=== PATIENT | female | born 1950 | race Caucasian/White ===

== ENCOUNTER → 2017-05-20 | Outpatient (CLI) | payer OTHER | LOC: FIMAGING 12:55 | PROVIDERS: ATTEND Physician Assistant | DX: Z13.820 Encounter for screening for osteoporosis (principal); M81.0 Age-related osteoporosis without current pathological fracture | CPT/HCPCS: G0202 ==

== ENCOUNTER 2017-07-24 11:21 | Observation (INO) | payer OTHER ==
--- NOTE | 2017-07-24 11:43 | CPEKG ---
Heart Rate: 84 RR Interval: 714 P-R Interval: 192 QRSD Interval: 92 QT Interval: 392 QTC Interval: 464 P Pendleton: -78 QRS Pendleton: -67 T Wave Pendleton: 68 EKG Severity - ABNORMAL ECG - EKG Impression: SINUS OR ECTOPIC ATRIAL RHYTHM EKG Impression: VENTRICULAR PREMATURE COMPLEX EKG Impression: LEFT ANTERIOR FASCICULAR BLOCK EKG Impression: CONSIDER LEFT VENTRICULAR HYPERTROPHY EKG Impression: Notched P wave Electronically Signed By: Yung Laguna 24-Jul-2017 11:56:16
[2017-07-24] MEDS ORDERED: NS 500 ML IV ONE (11:49)
--- NOTE | 2017-07-24 11:53 | EDPHY ---
H & P Stated Complaint: dizziness, chest tightness, sob, cold symptoms Time Seen by Provider: 07/24/17 11:37 HPI/ROS: CHIEF COMPLAINT: Lightheaded HISTORY OF PRESENT ILLNESS: Patient is a 67-year-old female who comes to the emergency department complaining that she feels lightheaded and presyncopal. She states that she has a history of bicuspid aortic valve and right atrial aneurysm and follows with Dr. Hunt. She has on metoprolol. She states that since she began taking the metoprolol she has had occasional lightheaded symptoms and mild chest tightness for the last 3-4 months. When she has her presyncopal symptoms she checks her pulse and it is usually slow in the 50s or 60s. Dr. Hunt felt that it was likely from the metoprolol but otherwise she was doing well. Today however symptoms seems worse than usual. She does not have any chest pain in her chest tightness is not any different from normal. She states that she was fainted when she stood up. She checked her pulse and it was 60 and her blood pressure was 140 systolic. 5 minutes later she checked her blood pressure again however and it was 90 systolic and her pulse was 80. She denies recent fevers coughs or illness. She denies shortness of breath. No nausea vomiting. No diaphoresis. No leg pain or swelling. She did have a stress test a couple months ago that she reports was normal. REVIEW OF SYSTEMS: Constitutional: denies: chills, fever, recent illness, recent injury EENTM: denies: blurred vision, double vision, nose congestion Respiratory: denies: cough, shortness of breath Cardiac: See HPI denies: irregular heart rate, palpitations Gastrointestinal/Abdominal: denies: abdominal pain, diarrhea, nausea, vomiting, blood streaked stools Genitourinary: denies: dysuria, frequency, hematuria, pain Musculoskeletal: denies: joint pain, muscle pain Skin: denies: lesions, rash, jaundice, bruising Neurological: denies: headache, numbness, paresthesia, tingling, dizziness, weakness Hematologic/Lymphatic: denies: blood clots, easy bleeding, easy bruising Immunologic/allergic: denies: HIV/AIDS, transplant EXAM: GENERAL: Well-appearing, well-nourished and in no acute distress. HEAD: Atraumatic, normocephalic. EYES: Pupils equal round and reactive to light, extraocular movements intact, sclera anicteric, conjunctiva are normal. ENT: TMs normal, nares patent, oropharynx clear without exudates. Moist mucous membranes. NECK: Normal range of motion, supple without lymphadenopathy or JVD. LUNGS: Breath sounds clear to auscultation bilaterally and equal. No wheezes rales or rhonchi. HEART: Regular rate and rhythm without murmurs, rubs or gallops. ABDOMEN: Soft, nontender, normoactive bowel sounds. No guarding, no rebound. No masses appreciated. BACK: No CVA tenderness, no spinal tenderness, step-offs or deformities EXTREMITIES: Normal range of motion, no pitting or edema. No clubbing or cyanosis. NEUROLOGICAL: Cranial nerves II through XII grossly intact. Normal speech, normal gait. 5/5 strength, normal movement in all extremities, normal sensation PSYCH: Normal mood, normal affect. SKIN: Warm, dry, normal turgor, no visible rashes or lesions. 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, H-PYLORI 2010, PNUEMONIA 04/26, HTN, SINUS SURG - Family History Significant Family History: No pertinent family hx - Social History Smoking Status: Never smoked Alcohol Use: Sober Drug Use: None Constitutional: Initial Vital Signs Temperature (C) 36.8 C 07/24/17 11:27 Heart Rate 86 07/24/17 11:27 Respiratory Rate 18 07/24/17 11:27 Blood Pressure 158/64 H 07/24/17 11:27 O2 Sat (%) 97 07/24/17 11:27 O2 Delivery Mode Room Air Allergies/Adverse Reactions: rosuvastatin [From Crestor] Allergy (Intermediate, Verified 07/24/17 13:59) Rash triethanolamine [From Cerumenex] Allergy (Intermediate, Verified 07/24/17 13:59) Other-Enter Comments Home Medications: Medication Instructions Recorded Calcium Carbonate [Oyster Shell 500 mg PO DAILY 10/12/15 Calcium 500 mg (*)] Omeprazole [Prilosec 20 mg] 20 mg PO DAILY 10/12/15 Cholecalciferol Vit D3 [Vitamin D3 1,000 units PO DAILY 07/24/17 (*)] Cyanocobalamin [Vitamin B12 (*)] 1,000 mcg PO Q2D@09 07/24/17 Herbals/Supplements -Info Only 1 ea PO DAILY 07/24/17 Multivitamins [Multivitamin (*)] 1 each PO DAILY 07/24/17 Harold-3 Fatty Acids [Fish Oil 1000 1,000 mg PO DAILY 07/24/17 mg (*)] Metoprolol Succinate 50 mg PO DAILY@18 #0 07/25/17 Medical Decision Making - Diagnostics EKG Interpretation: An EKG obtained and was read and documented in trace view. Please see trace view for full reading and report. Sinus rhythm with notch P wave, PVC, similar to previous Imaging: Discussed imaging studies w/ scallop binder Radiologist ED Course/Re-evaluation: Patient's orthostatic vital signs are normal. 12:50 p.m. the patient's lab work and imaging are normal thus far. I spoke with hospital service who will admit to Dr. Helm. Differential Diagnosis: Partial list of the Differential diagnosis considered include but were not limited to; acute coronary disease, arrhythmia, dehydration and although unlikely based on the history and physical exam, I also considered infection, aneurysm. - Data Points Laboratory Results: Laboratory Results 07/24/17 11:42 07/24/17 11:42 Medications Given: Discontinued Medications Calcium Carbonate (Oyster Shell Calcium) 500 mg PO DAILY [facility] Stop: 01/21/18 08:59 Last Admin: 07/25/17 13:38 Dose: 500 mg Cholecalciferol (Vitamin D) 1,000 units PO DAILY [facility] Stop: 01/21/18 08:59 Last Admin: 07/25/17 13:38 Dose: 1,000 units Cosyntropin (Cortrosyn Syringe) 0.25 mg IVP DAILY@0600 ONE Stop: 07/25/17 06:01 Last Admin: 07/25/17 05:28 Dose: 0.25 mg Sodium Chloride (Ns) 500 mls @ 0 mls/hr IV EDNOW ONE; Wide Open PRN Reason: Protocol Stop: 07/24/17 11:50 Last Admin: 07/24/17 12:08 Dose: 500 mls Metoprolol Succinate (Toprol Xl) 75 mg PO DAILY@18 [facility] Stop: 01/20/18 17:59 Last Admin: 07/24/17 17:03 Dose: 75 mg Multivitamins (Tab-A-Faviola) 1 each PO DAILY [facility] Stop: 01/21/18 08:59 Last Admin: 07/25/17 13:38 Dose: 1 each [id number] Ethyl Esters (Fish Oil) 1,000 mg PO DAILY [facility] Stop: 01/21/18 08:59 Last Admin: 07/25/17 13:38 Dose: 1,000 mg Pantoprazole Sodium (Protonix) 40 mg PO DAILY [facility] Stop: 01/21/18 08:59 Last Admin: 07/25/17 08:36 Dose: 40 mg Departure - Departure Disposition: [facility] Acute Clinical Impression: Chest pain, Pre-syncope Condition: Fair
[2017-07-24 11:54] LABS: % IMMATURE GRANULYOCYTES 0.3 % (0.0-1.1); ABSOLUTE IMMATURE GRANULOCYTES 0.02 10^3/uL (0.00-0.10); ADD DIFF? NO; ADD MORPH? NO; ADD SCAN? NO; ATYPICAL LYMPHOCYTE FLAG 0 (0-99); FRAGMENT RBC FLAG 0 (0-99); HEMATOCRIT 40.5 % (38.0-47.0); HEMOGLOBIN 14.4 g/dL (12.6-16.3); LEFT SHIFT FLG 0 (0-99); LIPEMIA HEMOLYSIS FLAG 90 (0-99); MEAN CELL HEMOGLOBIN 30.4 pg (27.9-34.1); MEAN CELL HEMOGLOBIN CONCENTR. 35.6 g/dL (32.4-36.7); MEAN CELL VOLUME 85.6 fL (81.5-99.8); MEAN PLATELET VOLUME 9.3 fL (8.7-11.7); PLATELET CLUMPS FLAG 0 (0-99); PLATELET COUNT 266 10^3/uL (150-400); RED BLOOD CELL COUNT 4.73 10^6/uL (4.18-5.33); RED CELL DISTRIBUTION WIDTH 11.9 % (11.5-15.2)
[2017-07-24 12:06] LABS: ANION GAP 12 mEq/L (8-16); CALCIUM 9.3 mg/dL (8.5-10.4); CARBON DIOXIDE 24 mEq/l (22-31); CHLORIDE 104 mEq/L (97-110); CREATININE 0.7 mg/dL (0.6-1.0); GLOMERULAR FILTRATION RATE > 60; GLUCOSE 126 mg/dL (70-100); SODIUM 140 mEq/L (134-144)
[2017-07-24 12:15] LABS: TROPONIN I < 0.012 ng/mL (0.000-0.034)
[2017-07-24 12:42] LABS: PROTIME(PATIENT) 13.1 SEC (12.0-15.0)
[2017-07-24 12:43] LABS: APTT 26.7 SEC (23.0-38.0)
--- NOTE | 2017-07-24 14:33 | PDGENHP ---
History and Physical History and Physical: CC: Lightheadedness and chest discomfort HISTORY: This patient who has a history of bicuspid aortic valve with and what sounds like possible right atrial aneurysm, was started on metoprolol [address] Mata. Is not entirely clear what the medicine was started for talking to the patient, though it sounds like it may been a combination of high blood pressure and heart valve issues. The patient has never had any symptoms from her bicuspid aortic valve that she is aware of. However since starting on the metoprolol the patient has noted frequent episodes of postural lightheadedness. 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 They are not exertional per se. They have not been associated with any dyspnea, acute neurologic symptoms, or palpitations. She does check her pulse sometimes during these episodes and finds it to be approximately 60 beats per minute though she is not really sure whether her pulses much faster at other times. It does not sound like she has checked her blood pressure during these episodes at home. The episodes however typically are quite brief lasting always less than 1 minute. Afterward she does not have residual symptoms. There has never been syncope or fall. She does however feel she needs to put a handout against a wall or railing at times if she is standing. It sounds like her last echocardiogram was about 5-6 months ago In addition over the past week the patient's has started to note intermittently some vaguely described discomfort in the substernal area. These episodes when they occur last what sounds like around 30-60 seconds and resolved spontaneously. 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 They are not all postural, they do not involve dyspnea, they are never exertional. She does do regular physical activity and has felt fine during her physical activity recently. In addition she did have a treadmill stress test without perfusion imaging in May and she thinks that test was normal. She has no history of coronary or vascular disease, no history of tobacco exposure diabetes or hypercholesterolemia. She has had some hypertension. There is no family history of coronary disease ROS: A comprehensive 10 system review revealed no other significant findings PAST MEDICAL HISTORY: Bicuspid aortic valve ? 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 I have reviewed the list and ordered appropriate medicines. PHYSICAL EXAMINATION: Vital Signs: Some systolic hypertension here so far otherwise normal vital signs Orthostatic vital Signs: She did have a significant greater than 20 point decrease in blood pressure supine to standing, though interestingly her her pulse was 67 supine, 81 seated, 67 standing Certified Physical Therapist Assistant: All sinus at this point with good heart rates Examination: General: alert, oriented, good mentation, relaxed Skin: warm, dry, good color, no rash HEENT: normal Neck: no mass or jvd Resps: relaxed Lungs: clear breath sounds Heart: regular, no murmur Abdomen: soft, nondistended, nontender, +BS, no mass Upper Extremities: normal Lower Extremities: no edema, warm No Bleeding or bruising Neurologic: normal speech/language, normal box nailer, no focal weakness IV site: looks normal LABORATORY DATA: Troponin, basic met panel, CBC all normal RADIOLOGY STUDIES: Chest x-ray on my review of image shows hyperexpansion suggestive of possible obstructive disease otherwise unremarkable 12 LEAD EKG: My assessment of the tracing: Sinus rhythm with notched P waves consistent with her history of right atrial aneurysm; left anterior fascicular block is present but no other conduction abnormalities, no signs of ischemia or injury; a U wave is present ASSESSMENT: # frequent episodes of orthostatic lightheadedness and the patient started on metoprolol 75 mg daily shortly before onset of these episodes. -no definite evidence of bradycardia at this time -orthostatic blood pressure changes noted on exam in the ER, though inconclusive measure of pulse changes -at present nothing specific to suggest a neurologic disease that would cause orthostasis but this is always a consideration this age group; She does not appear dehydrated # recent onset of anginal sounding chest discomfort episodes at rest, her worst episode occurred this morning -1st troponin and EKG nonischemic -will need to review her stress test results from May if that is available # history of hypertension, currently hypertensive despite medication # history of bicuspid aortic valve and right atrial aneurysm -it sounds like Dr. Mata has not been concerned about any need to be considering surgery, and I do not hear a murmur at this time # she reports history of an echocardiogram 5 months ago, reportedly normal stress test 2 months ago It is certainly possible that the metoprolol as the cause of her orthostatic lightheadedness. All look for other possible causes here but if nothing really shows up it may be worth a trial off the metoprolol to see if she gets better. In terms of her chest discomfort there are certain features to this that make it sounds like it may be digestive were stress related. However given her uncontrolled hypertension and her age with certainly 1 be cautious with this anginal something symptom and rule out for ME and likely with provocative stress testing tomorrow. She has stress test in May would consider doing a test with perfusion imaging. I have reviewed the patient's case in detail with Dr. vieyra I have requested the patient's past medical records as part of this assessment, including clinic records to include her echocardiogram and stress test reports.
[2017-07-24] MEDS ORDERED: ZOLPIDEM TARTRATE 5 MG TAB PO PRN (17:38)
[2017-07-24] MEDS ORDERED: ONDANSETRON 4 MG/2 ML VIAL IVP PRN (17:38)
[2017-07-24] MEDS ORDERED: ACETAMINOPHEN 325 MG TAB PO PRN (17:38)
[2017-07-24] MEDS ORDERED: METOPROLOL SUCCINATE XR 25 MG TAB PO SCH (18:00)
[2017-07-25] MEDS ORDERED: COSYNTROPIN 0.25 MG/2 ML SYRINGE IVP ONE (06:00)
[2017-07-25 07:02] VITALS: TEMP 98
[2017-07-25] MEDS ORDERED: CHOLECALCIFEROL VIT D3 1,000 UNITS TAB PO SCH (09:00)
[2017-07-25] MEDS ORDERED: PANTOPRAZOLE SODIUM 40 MG TAB PO SCH (09:00)
[2017-07-25] MEDS ORDERED: OMEGA-3 FATTY ACIDS 1,000 MG CAP PO SCH (09:00)
[2017-07-25] MEDS ORDERED: NON-FORMULARY NEW DRUG (Omeprazole [Prilosec 20 Mg] 20 MG) PO SCH (09:00)
[2017-07-25] MEDS ORDERED: MULTIVITAMINS 1 EACH TAB PO SCH (09:00)
[2017-07-25] MEDS ORDERED: CALCIUM CARBONATE 500 MG TAB PO SCH (09:00)
[2017-07-25 11:30] VITALS: BP 159/80; PULSE 72; RESP 18; O2SAT 93
--- NOTE | 2017-07-25 11:52 | CPIP ---
[f rep st] INVASIVE CARDIAC PROCEDURE DATE OF PROCEDURE: 07/25/2017 PROCEDURE PERFORMED: Lexiscan stress test report. INDICATIONS: Chest pain. COMPLICATIONS: None. DESCRIPTION OF PROCEDURE: Informed consent was obtained. The patient was established to the monitor . Continuous telemetry and continuous oxygen saturation monitoring were performed, as well as blood pressures every 1 minute throughout the test. She received a standard Lexiscan dose of 0.4 mg followed by saline flush, followed by radiopharmaceut ical. The patient tolerated the procedure well, with some chest fullness and abdominal fullness that subsid ed with caffeine. FINDINGS: Resting EKG shows sinus rhythm with delayed R-wave progression and left anterior fascicula r block. Stress EKG: No change in ST segments. Occasional PVCs. HEMODYNAMICS: Resting heart rate 57 beats per minute. Resting blood pressure 146/78. Peak hyperemi a blood pressure 140/82 with a heart rate of 81. Oxygen saturation remained above 90% throughout vicky ting. CONCLUSIONS: Uneventful Lexiscan stress test. Await nuclear images. /[id number]/MODL
--- NOTE | 2017-07-25 12:03 | ASMTCMCOM ---
CM Note CM Note Notes: 07/25/2017 Case Management Note Reviewed chart. There are no PT or OT evals ordered. No case management d/c needs identified d/t pt age, employment status and actifvity levesl prior to admission. Case management d/c poc: Home independent when medically stable with follow up as directed. Case management available if needs change. Date Signed: 07/25/2017 12:02 PM Electronically Signed By:Elizabeth Cruz RN
--- NOTE | 2017-07-25 14:27 | PDDCSUM ---
Discharge Summary Discharge Summary: DISCHARGE DIAGNOSES: -symptomatic orthostatic hypotension -uncontrolled benign essential hypertension -chest pain, noncardiac -normal myocardial perfusion imaging with Lexiscan stress -known coronary calcifications per CT scan -bicuspid aortic valve without significant week or stenosis by most recent echo PROCEDURES: Lexiscan with myocardial perfusion imaging HOSPITAL COURSE SUMMARY: This patient presented to the hospital complaining of 3 months of ongoing symptomatic lightheaded spells. Here she had persistent orthostatic hypotension in the setting of uncontrolled hypertension. She is taking long- acting metoprolol 75 mg daily and started this medicine shortly before the onset of her symptoms. On cardiac monitoring she had no significant arrhythmia. There is no evidence of heart failure or ischemia and she had no evidence of coronary abnormalities on myocardial perfusion imaging. Her ejection fraction is normal. She had no neurologic symptoms otherwise and a normal neurologic exam. She did not have evidence of dehydration or infection or significant anemia. She has a normal Cortrosyn stim test and a normal TSH. The cause of her orthostatic hypotension is uncertain. The metoprolol may be aggravating her symptoms but I do not think it is causing her orthostatic symptoms from a root cause. It may be that this is the beginning of will be come some type of progressive neurologic illness. Over time this will need to be followed closely and she may potentially need other evaluation for neurologic or other abnormalities that could cause this. In the meantime managing her orthostatic hypotension will be problematic the in that she has hypertension and needs this treated, particularly as she does have known coronary calcifications on CT scan. For the moment I think it will be important to try and test whether the metoprolol as actually aggravating her symptoms and so I have asked her to decrease her metoprolol to 50 mg daily and if no improvement in 2 weeks consider decreasing it to 25 mg daily. If she feels no better on the lower doses of metoprolol she can go back to the 75 mg. If she does feel better off the current dose of metoprolol she will need to watch her blood pressures at home and she may need other blood pressure medicines trialed to see if she tolerates them any better. In addition the patient did have some chest discomfort episodes as she arrived here. This did not particularly sound typical of angina but we did do a rule out protocol and myocardial perfusion imaging as she does have known coronary calcifications. There was no evidence of ischemia or injury here and she rule out for myocardial infarction. Myocardial perfusion imaging was normal. She appears at very low risk for any future cardiac events at this time. PENDING TEST RESULTS: None MEDICATION CHANGES: Decreased metoprolol dose 50 mg daily, follow for resolution of orthostatic symptoms, consider decreasing to 25 mg daily if the symptoms persist FOLLOW-UP PLAN: She will be following up with her primary care physician and Dr. Mata for all of the above
--- NOTE | 2017-07-25 16:36 | ASDISCHSUM ---
Discharge Information Plan Status:Home with No Needs Medically Cleared to Leave:07/24/2017 Discharge Date:07/25/2017 03:38 PM CM D/C Disposition:Home, Routine, Self-Care ADT D/C Disposition:Home, Routine, Self-Care Projected Discharge Date:07/25/2017 03:38 PM Transportation at D/C:Family Discharge Delay Reason: Follow-Up Date:07/25/2017 03:38 PM Discharge Slot: Final Diagnosis: Placement Information Patient Contact Information Contact Name:FRAN Relationship:Mother Address:[address] [place] Work Phone: City:[place] Alternate Phone: [facility]/Zip Code:[place] [address] Email: Financial Information Financial Class:HMO and PPO Plans Primary Plan Desc:[employer] PPO POS Primary Plan Number:[id number] Secondary Plan Desc: Secondary Plan Number: Assessment Information LACE LACE Acuity / Level of Care Answers: Was the patient admitted to hospital via the emergency department? Yes: Emergency dept visits in Answers: 1 last 6 months Score: 4 Date Signed: 07/24/2017 01:01 PM Electronically Signed By:Nimco Navarrete RN [facility] CM Progress Note CM Note CM Note Notes: 07/25/2017 Case Management Note Reviewed chart. There are no PT or OT evals ordered. No case management d/c needs identified d/t pt age, employment status and actifvity levesl prior to admission. Case management d/c poc: Home independent when medically stable with follow up as directed. Case management available if needs change. Date Signed: 07/25/2017 12:02 PM Electronically Signed By:Elizabeth Cruz RN Intervention Information
[2017-07-26] MEDS ORDERED: CYANO/VITAMIN B12 1000 MCG TAB PO SCH (09:00)
== END 2017-07-25 15:38 | disposition home or self-care (01) ==
LOC: F2W 13:46
PROVIDERS: ADMIT Family Medicine; ATTEND Internal Medicine
DX: I95.1 Orthostatic hypotension (principal); R07.89 Other chest pain; I10 Essential (primary) hypertension; I25.10 Atherosclerotic heart disease of native coronary artery without angina pectoris; I71.2 Thoracic aortic aneurysm, without rupture; Q23.1 Congenital insufficiency of aortic valve
CPT/HCPCS: 71020; 78451; 93005; 93017; A9500; G0378; J0834

== ENCOUNTER → 2017-12-30 | Outpatient (CLI) | payer OTHER | LOC: FIMAGING 07:11 | PROVIDERS: ATTEND Physician Assistant | DX: I25.10 Atherosclerotic heart disease of native coronary artery without angina pectoris (principal); I13.10 Hypertensive heart and chronic kidney disease without heart failure, with stage 1 through stage 4 chronic kidney disease, or unspecified chronic kidney disease ==

== ENCOUNTER → 2018-05-26 | Outpatient (CLI) | payer OTHER | LOC: FIMAGING 07:47 | PROVIDERS: ATTEND Physician Assistant | DX: Z12.31 Encounter for screening mammogram for malignant neoplasm of breast (principal) ==

== ENCOUNTER 2018-09-30 09:09 | Day surgery (SDC) | payer OTHER ==
[2018-09-30] MEDS ORDERED: LIDOCAINE 1% 300 MG/30 ML SDV SC ONE (09:14)
--- NOTE | 2018-09-30 09:58 | PDHPUP ---
History & Physical Update H&P update statement: This history and physical update is based on an assessment of the patient which was completed after admission or registration (within 24 hours), but prior to the surgery/procedure.Plan for Medtronic LINQ in the setting of idiopathic CVA H&P update: H&P reviewed & patient examined, no change in patient's condition since H&P completed
[2018-09-30 11:21] VITALS: BP 188/86
[2018-09-30] MEDS ORDERED: amLODIPine BESYLATE 5 MG TAB PO ONE (11:30)
--- NOTE | 2018-09-30 13:17 | CPIP ---
DATE OF PROCEDURE: 09/30/2018 PROCEDURE PERFORMED: Medtronic LINQ implantable loop recorder. INDICATION FOR PROCEDURE: History of idiopathic CVA. PROCEDURE: After informed consent was obtained, the patient was brought to the CVC. Sterile dressin g was placed. The 4th intercostal space 2 cm from midline was identified. Patient underwent local a nesthesia with lidocaine. Once appropriate level of anesthesia was in place, incision with scalpel t ool provided with Medtronic kit was used to make incision in the skin. This incision was modified wi th a scalpel blade. Medtronic implantable loop recorder tool was used to create under the skin. Device was injected into the skin without difficulty. Hemostasis was achieved. Steri-Strips x3 were placed. Gauze and Tegaderm were placed. The patient tolerated the procedure well. There were no postoperative complications. Patient at the time of this dictation is having her device interrogated. She is scheduled for followup with Yecenia morales, nurse practitioner, in our office next week. PLAN: 1. Patient will be discharged home after device has been programmed and interrogated. 2. Followup next week. /[id number]/MODL
== END 2018-09-30 12:27 | disposition home or self-care (01) ==
LOC: FCATH 09:09
PROVIDERS: ATTEND Internal Medicine Cardiovascular Disease
PROC: 0JH632Z Insertion of Monitoring Device into Chest Subcutaneous Tissue and Fascia, Percutaneous Approach (ICD-10-PCS; principal; 2018-09-30)
DX: I63.9 Cerebral infarction, unspecified (principal); I10 Essential (primary) hypertension; I71.9 Aortic aneurysm of unspecified site, without rupture; E78.5 Hyperlipidemia, unspecified
CPT/HCPCS: C1764

== ENCOUNTER → 2019-01-06 | Outpatient (CLI) | payer OTHER | LOC: FIMAGING 12:53 | PROVIDERS: ATTEND Physician Assistant | DX: Z13.820 Encounter for screening for osteoporosis (principal); M85.89 Other specified disorders of bone density and structure, multiple sites; Z78.0 Asymptomatic menopausal state ==

== ENCOUNTER → 2019-03-09 | Outpatient (CLI) | payer OTHER | LOC: FIMAGING 09:20 ==